=== PATIENT | female | born 1985 | race Two or more races ===

== ENCOUNTER 2021-12-17 19:37 | Emergency (ER) | payer OTHER ==
[~2021-12-17] VITALS: Ht 165.1 cm; Wt 89.8 kg
[2021-12-17] MEDS ORDERED: ZITHROMAX500 MG PO (22:37)
[2021-12-17] MEDS ORDERED: MEDROLPACK PO (22:37)
[2021-12-17] MEDS ORDERED: TUSNEL LIQUID178 ML PO (22:37)
[2021-12-17] MEDS ORDERED: SINUS RINSE ST1 EACH NS (22:38)
[2021-12-17] MEDS ORDERED: FLONASE ALLERG9.9 ML NASAL (22:38)
== END 2021-12-17 22:44 | disposition home or self-care (01) ==
LOC: ER 19:37
DX: B34.9 Viral infection, unspecified (principal); Z20.822 Contact with and (suspected) exposure to COVID-19